=== PATIENT | female | born 1950 | race Caucasian/White ===

== ENCOUNTER 2017-09-12 07:00 | Emergency (ER) | payer OTHER ==
[2017-09-12] MEDS ORDERED: KETOROLAC 30 MG/ML INJ ONE (07:32)
[2017-09-12] MEDS ORDERED: CYCLOBENZAPRINE 10 MG TAB ONE (07:32)
--- NOTE | 2017-09-12 09:00 | EDPHYS ---
Physician Documentation [facility] Name: Mary Bernardo Age: 66 yrs Sex: Female : 1950 Arrival Date: 09/12/2017 Time: 07:02 Bed 20 Private MD: Earl Padron ED Physician Ernesto Rosado HPI: 09/12 11:25 This 66 yrs old Female presents to ER via Ambulatory with complaints of Back kdr Pain. 11:25 The patient presents with pain that is acute, and decreased range of motion. The kdr symptoms are located in the low back, right mid back. Onset: The symptoms/episode began/occurred suddenly, yesterday. The pain does not radiate. Associated signs and symptoms: Pertinent positives: nausea, Pertinent negatives: abdominal pain, chest pain, constipation, dysuria, fever, headache, hematuria, incontinence, numbness, tingling, urinary retention, vomiting, weakness. The problem was sustained when bending over, when lifting without known cause, from unknown cause. Severity of symptoms: At their worst the symptoms were moderate, in the emergency department the symptoms are unchanged. The patient has not experienced similar symptoms in the past. The patient has not recently seen a physician. Historical: - Allergies: 07:25 Cipro PO; ae1 07:25 PENICILLINS; ae1 - Home Meds: 07:25 Lipitor Oral [Active]; Metoprolol Tartrate Oral [Active]; aspirin 81 mg Oral chew 1 tab ae1 once daily [Active]; Lisinopril Oral [Active]; - PMHx: 07:25 Hyperlipidemia; Hypertension; ae1 - PSHx: 07:25 Hysterectomy; double bypass; femoral artery bypass; ae1 - Immunization history:: Adult Immunizations up to date. - Social history:: Smoking status: Patient/guardian denies using tobacco, but has a distant history of tobacco abuse. - Ebola Screening: : Patient negative for fever greater than or equal to 101.5 degrees Fahrenheit, and additional compatible Ebola Virus Disease symptoms Patient denies exposure to infectious person Patient denies travel to an Ebola-affected area in the 21 days before illness onset. ROS: 11:25 Constitutional: Negative for fever, chills, and weight loss, Eyes: Negative for injury, kdr pain, redness, and discharge, ENT: Negative for injury, pain, and discharge, Neck: Negative for injury, pain, and swelling, Cardiovascular: Negative for chest pain, palpitations, and edema, Respiratory: Negative for shortness of breath, cough, wheezing, and pleuritic chest pain, Abdomen/GI: Negative for abdominal pain, nausea, vomiting, diarrhea, and constipation, : Negative for injury, bleeding, discharge, and swelling, MS/Extremity: Negative for injury and deformity, Skin: Negative for injury, rash, and discoloration, Neuro: Negative for headache, weakness, numbness, tingling, and seizure activity. Psych: Negative for depression, anxiety, suicide ideation, homicidal ideation, and hallucinations, Allergy/Immunology: Negative for hives, rash, and allergies, Endocrine: Negative for neck swelling, polydipsia, polyuria, polyphagia, and marked weight changes, Hematologic/Lymphatic: Negative for swollen nodes, abnormal bleeding, and unusual bruising. 11:25 Back: Positive for decreased range of motion, pain with movement, flank pain, on the right, Negative for injury or acute deformity, pain at rest, radiated pain. Exam: 11:25 Constitutional: This is a well developed, well nourished patient who is awake, alert, kdr and in no acute distress. Head/Face: Normocephalic, atraumatic. Eyes: Pupils equal round and reactive to light, extra-ocular motions intact. Lids and lashes normal. Conjunctiva and sclera are non-icteric and not injected. Cornea within normal limits. Periorbital areas with no swelling, redness, or edema. Neck: Trachea midline, no thyromegaly or masses palpated, and no cervical lymphadenopathy. Supple, full range of motion without nuchal rigidity, or vertebral point tenderness. No Meningismus. Chest/axilla: Normal chest wall appearance and motion. Nontender with no deformity. No lesions are appreciated. Cardiovascular: Regular rate and rhythm with a normal S1 and S2. No gallops, murmurs, or rubs. Normal PMI, no JVD. No pulse deficits. Respiratory: Lungs have equal breath sounds bilaterally, clear to auscultation and percussion. No rales, rhonchi or wheezes noted. No increased work of breathing, no retractions or nasal flaring. Abdomen/GI: Soft, non-tender, with normal bowel sounds. No distension or tympany. No guarding or rebound. No evidence of tenderness throughout. Skin: Warm, dry with normal turgor. Normal color with no rashes, no lesions, and no evidence of cellulitis. MS/ Extremity: Pulses equal, no cyanosis. Neurovascular intact. Full, normal range of motion. Neuro: Awake and alert, GCS 15, oriented to person, place, time, and situation. Cranial nerves II-XII grossly intact. Motor strength 5/5 in all extremities. Sensory grossly intact. Cerebellar exam normal. Normal gait. Psych: Awake, alert, with orientation to person, place and time. Behavior, mood, and affect are within normal limits. 11:25 Back: pain, that is moderate, of the right mid back, ROM is painful, normal spinal alignment noted, CVA tenderness, is noted on the right, vertebral tenderness, is not appreciated, muscle spasm, is appreciated in the right mid back, The patient has pain only when she moves. She has no pain when at rest in bed. Vital Signs: 07:25 BP 152 / 82; Pulse 52; Resp 19; Temp 97.6(O); Pulse Ox 96% on R/A; Weight 99.79 kg (R); ae1 Pain 8/10; 08:30 BP 133 / 54; Pulse 50; Resp 16; Pulse Ox 96% on R/A; ae1 MDM: 08:59 Patient medically screened. kdr 11:25 Data reviewed: vital signs, nurses notes. Counseling: I had a detailed discussion with kdr the patient and/or guardian regarding: the historical points, exam findings, and any diagnostic results supporting the discharge/admit diagnosis, the need for outpatient follow up. 09/12 07:22 Order name: Urine Dipstick-Ancillary (obtain specimen); Complete Time: 07:29 kdr Administered Medications: 07:30 Drug: TORadol 30 mg Route: IM; Site: left gluteus; ae1 08:17 Follow up: Response: Pain is decreased ae1 07:30 Drug: Flexeril 10 mg Route: PO; ae1 08:17 Follow up: Response: Pain is decreased ae1 Disposition: 09/12/17 08:59 Discharged to Home. Impression: Muscle spasm of back, Muscle spasm, Low back pain. - Condition is Stable. - Discharge Instructions: Musculoskeletal Pain, Back Pain, Adult, [id number], Muscle Cramps and Spasms, [id number]. - Prescriptions for Ibuprofen 800 mg Oral Tablet - take 1 tablet by ORAL route every 8 hours As needed take with food; 12 tablet. Cyclobenzaprine 10 mg Oral Tablet - take 1 tablet by ORAL route every 8 hours As needed; 15 tablet. - Medication Reconciliation Form, Thank You Letter form. - Follow up: Earl Padron DO; When: 2 - 3 days; Reason: If symptoms return, Further diagnostic work-up, Recheck today's complaints, Continuance of care, Re-evaluation by your physician. - Problem is new. - Symptoms have improved. Signatures: Ernesto Rosado MD MD kdr Choco Cote RN RN ae1 Corrections: (The following items were deleted from the chart) 09:28 08:59 09/12/2017 08:59 Discharged to Home. Impression: Muscle spasm of back; Muscle ae1 spasm; Low back pain. Condition is Stable. Forms are Medication Reconciliation Form, Thank You Letter, Antibiotic Education, Prescription Opioid Use. Follow up: Earl Padron; When: 2 - 3 days; Reason: If symptoms return, Further diagnostic work-up, Recheck today's complaints, Continuance of care, Re-evaluation by your physician. Problem is new. Symptoms have improved. kdr
--- NOTE | 2017-09-12 09:00 | ER ---
Nurse's Notes [facility] Name: Mary Bernardo Age: 66 yrs Sex: Female : 1950 Arrival Date: 09/12/2017 Time: 07:02 Bed 20 Private MD: Earl Padron Diagnosis: Muscle spasm of back;Muscle spasm;Low back pain Presentation: 09/12 07:18 Presenting complaint: Patient states: patient reports pain to the right flank that ae1 started the previous day after shopping at the grocery store. patient denies injury, rate pain 8/10. Transition of care: patient was not received from another setting of care. Onset of symptoms was September 11, 2017. Risk Assessment: Do you want to hurt yourself or someone else? Patient reports no desire to harm self or others. Initial Sepsis Screen: Does the patient meet any 2 criteria? No. Patient's initial sepsis screen is negative. Does the patient have a suspected source of infection? No. Patient's initial sepsis screen is negative. 07:18 Method Of Arrival: Ambulatory ae1 07:18 Acuity: DIEUDONNE 4 ae1 07:53 Care prior to arrival: None. ae1 Historical: - Allergies: 07:25 Cipro PO; ae1 07:25 PENICILLINS; ae1 - Home Meds: 07:25 Lipitor Oral [Active]; Metoprolol Tartrate Oral [Active]; aspirin 81 mg Oral chew 1 tab ae1 once daily [Active]; Lisinopril Oral [Active]; - PMHx: 07:25 Hyperlipidemia; Hypertension; ae1 - PSHx: 07:25 Hysterectomy; double bypass; femoral artery bypass; ae1 - Immunization history:: Adult Immunizations up to date. - Social history:: Smoking status: Patient/guardian denies using tobacco, but has a distant history of tobacco abuse. - Ebola Screening: : Patient negative for fever greater than or equal to 101.5 degrees Fahrenheit, and additional compatible Ebola Virus Disease symptoms Patient denies exposure to infectious person Patient denies travel to an Ebola-affected area in the 21 days before illness onset. Screenin:52 Abuse screen: Denies threats or abuse. Denies injuries from another. Nutritional ae1 screening: No deficits noted. Tuberculosis screening: No symptoms or risk factors identified. Fall Risk None identified. Assessment: 07:47 General: Appears uncomfortable, obese, Behavior is calm, cooperative. Pain: Complains ae1 of pain in right mid back and right low back Pain currently is 8 out of 10 on a pain scale. Aggravated by increased activity, Noted to be resistant to movement. Neuro: Level of Consciousness is awake, alert, obeys commands, Oriented to person, place, time, situation. Cardiovascular: Heart tones S1 S2 present Patient's skin is warm and dry. Respiratory: Airway is patent Respiratory effort is even, unlabored, Respiratory pattern is regular, symmetrical, Breath sounds are clear bilaterally. GI: Abdomen is round obese, Bowel sounds present X 4 quads. GI: Reports nausea. : No signs and/or symptoms were reported regarding the genitourinary system. EENT: No signs and/or symptoms were reported regarding the EENT system. wears glasses. Derm: Skin is normal. Musculoskeletal: no visible deformity or swelling. patient denies injury. 08:16 Reassessment: Patient appears in no apparent distress at this time. No changes from ae1 previously documented assessment. Patient states feeling better. Vital Signs: 07:25 BP 152 / 82; Pulse 52; Resp 19; Temp 97.6(O); Pulse Ox 96% on R/A; Weight 99.79 kg (R); ae1 Pain 8/10; 08:30 BP 133 / 54; Pulse 50; Resp 16; Pulse Ox 96% on R/A; ae1 ED Course: 07:02 Patient arrived in ED. am2 07:02 Earl Padron DO is Private Physician. am2 07:14 Ernesto Rosado MD is Attending Physician. kdr 07:18 Choco Cote RN is Primary Nurse. ae1 07:21 Triage completed. ae1 07:52 Arm band placed on right wrist. ae1 07:53 Placed in gown. Bed in low position. Call light in reach. Side rails up X 1. Adult w/ ae1 patient. Pulse ox on. NIBP on. Warm blanket given. 08:57 Earl Padron DO is Referral Physician. kdr 09:26 No provider procedures requiring assistance completed. Patient did not have IV access ae1 during this emergency room visit. Administered Medications: 07:30 Drug: TORadol 30 mg Route: IM; Site: left gluteus; ae1 08:17 Follow up: Response: Pain is decreased ae1 07:30 Drug: Flexeril 10 mg Route: PO; ae1 08:17 Follow up: Response: Pain is decreased ae1 Outcome: 08:59 Discharge ordered by . kdr 09:26 Discharged to home ambulatory. ae1 09:26 Condition: improved 09:26 Discharge instructions given to patient, Instructed on discharge instructions, follow up and referral plans. Demonstrated understanding of instructions, Prescriptions given X 2. 09:28 Patient left the ED. ae1 Signatures: Ernesto Rosado MD MD [facility] Choco Cote RN RN ae1 Lisa Solomon am2
== END 2017-09-12 09:28 | disposition home or self-care (01) ==
LOC: ER 07:00
DX: M62.830 Muscle spasm of back (principal); E78.5 Hyperlipidemia, unspecified; I10 Essential (primary) hypertension; Z88.1 Allergy status to other antibiotic agents; Z88.0 Allergy status to penicillin
CPT/HCPCS: 96372; 99283

== ENCOUNTER 2021-01-04 22:43 | Emergency (ER) | payer OTHER ==
[2021-01-04 23:31] LABS: Urine Blood 2+ (Negative); Urine Glucose Negative (Negative); Urine Protein Negative (Negative); Urine Specific Gravity >=1.030 (1.005-1.030); Urine pH 5.5 (5.0-7.0)
[2021-01-04] MEDS ORDERED: NA CHLORIDE 0.9% 500 ML ONE (23:58)
[2021-01-04] MEDS ORDERED: ONDANSETRON 4 MG/2 ML VIAL ONE (23:58)
[2021-01-04] MEDS ORDERED: NA CHLORIDE 0.9% 1,000 ML ONE (23:58)
[2021-01-04] MEDS ORDERED: MECLIZINE HCL 12.5 MG TAB ONE (23:59)
[2021-01-05 00:27] LABS: Absolute Lymphocytes (CBC) 2.6 K/uL (0.7-4.9); Basophils % 0.4 % (0-1.3); Hematocrit 42.9 % (36.0-45.0); Lymphocytes % 24.3 % (15.3-44.8); MPV 8.7 fL (7.6-11.3); RBC Red Blood Cell Count 4.62 M/uL (3.86-4.86)
[2021-01-05 00:39] LABS: ALT/SGPT 29 U/L (12-78); AST/SGOT 19 U/L (15-37); Albumin 3.9 g/dL (3.4-5.0); Alkaline Phosphatase 99 U/L (45-117); BUN Blood Urea Nitrogen 24 mg/dL (7-18); Bicarbonate 24 mmol/L (21-32); Bilirubin Direct 0.2 mg/dL (0-0.2); Bilirubin Total 0.8 mg/dL (0.2-1.0); Glucose Level 125 mg/dL (74-106); NT PRO-BNP 158 pg/mL (<125); Protein, Total 8.4 g/dL (6.4-8.2); Sodium Level 140 mmol/L (136-145); Troponin (Emerg Dept Use Only) < 0.02 ng/mL (0.0-0.045)
--- NOTE | 2021-01-05 00:52 | ER ---
Nurse's Notes [facility] Name: Mary Bernardo Age: 70 yrs Sex: Female : 1950 Arrival Date: 01/04/2021 Time: 22:46 Bed 9 Private MD: Diagnosis: Dizziness and giddiness;Benign paroxysmal vertigo, bilateral Presentation: 01/04 23:00 Chief complaint: Patient states: Dizziness. Coronavirus screen: Vaccine status: Patient df1 reports receiving the 2nd dose of the covid vaccine. Date June 2020. Ebola Screen: Patient negative for fever greater than or equal to 101.5 degrees Fahrenheit, and additional compatible Ebola Virus Disease symptoms. Initial Sepsis Screen: Does the patient meet any 2 criteria? No. Patient's initial sepsis screen is negative. Risk Assessment: Do you want to hurt yourself or someone else? Patient reports no desire to harm self or others. Onset of symptoms was January 03, 2021. 23:00 Method Of Arrival: Wheelchair df1 23:00 Acuity: DIEUDONNE 3 df1 23:04 Note Pt stated dizziness with movement and nausea starting tonight. H/A /10. df1 01/05 02:51 Initial Sepsis Screen: Does the patient have a suspected source of infection? No. sj1 Patient's initial sepsis screen is negative. Triage Assessment: 00:20 Pain: Pain currently is 4 out of 10 on a pain scale. Pain began gradually, Also sj1 complains of no other associated symptoms. 02:50 Headache History: Denies prior headaches. General: Appears in no apparent distress. [facility] Historical: - Allergies: 01/04 23:02 Cipro PO; df1 23:02 PENICILLINS; df1 - Home Meds: 23:02 aspirin 81 mg Oral chew 1 tab once daily [Active]; df1 23:11 Lipitor 20 mg oral tab 1 tab once daily [Active]; lisinopril 20 mg oral tab 1 tab once df1 daily [Active]; metoprolol tartrate 50 mg oral tab 1 tab once daily [Active]; - PMHx: 23:02 Hyperlipidemia; Hypertension; Myocardial infarction; df1 - PSHx: 23:02 Coronary artery bypass graft; Total abdominal hysterectomy; df1 - Immunization history:: Adult Immunizations up to date, Client reports receiving the 2nd dose of the Covid vaccine. - Social history:: Smoking status: Patient/guardian denies using. - Family history:: not pertinent. Screenin/23 00:03 Abuse screen: Denies threats or abuse. Nutritional screening: No deficits noted. sj1 Tuberculosis screening: No symptoms or risk factors identified. Fall Risk IV access (20 points). Gait- Normal/Bed Rest/Wheelchair (0 pts). Assessment: 00:03 General: Appears in no apparent distress. Behavior is calm, cooperative, Reports sj1 headache, left ear pain now resolved, + dizziness. Pain: Complains of pain in headache. Neuro: Level of Consciousness is awake, alert, Oriented to person, place, time, situation, Gait is steady, Speech is normal, Facial symmetry appears normal. Cardiovascular: Reports nausea. Respiratory: No deficits noted. GI: No deficits noted. : No deficits noted. EENT: No signs and/or symptoms were reported regarding the EENT system. Derm: No deficits noted. Musculoskeletal: No deficits noted. Vital Signs: 01/04 23:00 BP 164 / 83; Pulse 60; Resp 18; Temp 98.8; Pulse Ox 98% ; Weight 108.86 kg; Height 5 df1 ft. 3 in. (160.02 cm); Pain 0/10; 01/05 00:48 BP 143 / 65 LA Sitting (auto/lg); Pulse 57; Resp 18; Pulse Ox 94% on R/A; Pain 0/10; sj1 02:52 BP 152 / 68; Pulse 54; Resp 19 S; Temp 98.8; Pulse Ox 96% on R/A; Pain 1/10; sj1 01/04 23:00 Body Mass Index 42.51 (108.86 kg, 160.02 cm) df1 Vitals: 00:03 Cardiac Rhythm Assessment Regular Sinus marilee. sj1 Brainard Coma Score: 00:03 Eye Response: spontaneous(4). Verbal Response: oriented(5). Motor Response: obeys sj1 commands(6). Total: 15. ED Course: 01/04 22:46 Patient arrived in ED. bp1 23:02 Triage completed. df1 23:13 Ken Rajput MD is Attending Physician. beata 23:23 XRAY Chest (1 view) In Process Unspecified. EDMS 23:39 CT Head Brain wo Cont In Process Unspecified. EDMS 23:49 Urine Culture Sent. sj1 23:49 Basic Metabolic Panel Sent. sj1 23:49 CBC with Automated Diff Sent. sj1 23:49 Liver (Hepatic) Function Sent. [facility] 01/05 00:00 Patient placed on digital media sales consultant. sj1 00:03 No apparent distress. sj1 00:03 Inserted saline lock: 20 gauge in right antecubital area, using aseptic technique. sj1 00:03 Patient has correct armband on for positive identification. Bed in low position. Call 1 light in reach. Side rails up X 1. 00:20 No provider procedures requiring assistance completed. sj1 00:23 LFT's Sent. sj1 : CBC with Diff Sent. sj1 00: Basic Metabolic Panel Sent. sj1 00:52 Handy Sifuentes MD is Referral Physician. [facility] 02:51 IV discontinued, intact, bleeding controlled, No redness/swelling at site. sj1 Administered Medications: 01/04 23:48 Drug: NS 0.9% 500 ml Route: IV; Rate: bolus; Site: right antecubital; [facility] 01/05 00:48 Follow up: IV Status: Completed infusion; IV Intake: 500ml [facility] 01/04 23:48 Drug: NS 0.9% 1000 ml Route: IV; Rate: 125 ml/hr; Site: right antecubital; [facility] 01/05 02:54 Follow up: IV Status: Order to discontinue infusion [facility] 01/04 23:49 Drug: Zofran (Ondansetron) 4 mg Route: IVP; Site: right antecubital; [facility] 01/05 00:22 Follow up: Response: No adverse reaction [facility] 01/04 23:49 Drug: Meclizine 50 mg Route: PO; 1 01/05 00:49 Follow up: Response: Marked relief of symptoms sj1 Intake: 00:48 IV: 500ml; Total: 500ml. [facility] Outcome: 00:52 Discharge ordered by . [facility] 02:49 Discharged to home [facility] 02:49 Condition: stable 02:49 Discharge instructions given to patient, Instructed on discharge instructions, follow up and referral plans. medication usage, Demonstrated understanding of instructions, follow-up care, medications. 02:53 Patient left the ED. [facility] Signatures: Dispatcher [employer] EDMS ReguloKen MD MD cha Paniauga, Brittany bp1 Furlich, Dawn df1 Courtney Begum, RN RN sj1 Corrections: (The following items were deleted from the chart) 00:19 01/04 23:49 CORONAVIRUS+ drawn and sent. sj1 EDMS
--- NOTE | 2021-01-05 00:52 | EDPHYS ---
Physician Documentation [facility] Name: Mary Bernardo Age: 70 yrs Sex: Female : 1950 Arrival Date: 01/04/2021 Time: 22:46 Bed 9 Private MD: ED Physician Ken Rajput HPI: 01/05 00:17 This 70 yrs old Female presents to ER via Wheelchair with complaints of beata Dizziness, Headache. 00:17 The patient presents with dizziness, generalized weakness. Onset: The symptoms/episode beata began/occurred last night. Context: occurred. Modifying factors: The symptoms are alleviated by closing eyes, holding head still, the symptoms are aggravated by movement of head, standing up, changing position. Associated signs and symptoms: Pertinent positives: palpitations. Severity of symptoms: At their worst the symptoms were mild in the emergency department the symptoms are unchanged. Patient's baseline: Neuro: alert and fully oriented. The patient has experienced similar episodes in the past, a few times. Historical: - Allergies: 01/04 23:02 Cipro PO; df1 23:02 PENICILLINS; df1 - Home Meds: 23:02 aspirin 81 mg Oral chew 1 tab once daily [Active]; df1 23:11 Lipitor 20 mg oral tab 1 tab once daily [Active]; lisinopril 20 mg oral tab 1 tab once df1 daily [Active]; metoprolol tartrate 50 mg oral tab 1 tab once daily [Active]; - PMHx: 23:02 Hyperlipidemia; Hypertension; Myocardial infarction; df1 - PSHx: 23:02 Coronary artery bypass graft; Total abdominal hysterectomy; df1 - Immunization history:: Adult Immunizations up to date, Client reports receiving the 2nd dose of the Covid vaccine. - Social history:: Smoking status: Patient/guardian denies using. - Family history:: not pertinent. ROS: 01/05 00:17 Constitutional: Negative for fever, chills, and weight loss, Eyes: Negative for injury, beata pain, redness, and discharge, ENT: Negative for injury, pain, and discharge, Neck: Negative for injury, pain, and swelling, Cardiovascular: Negative for chest pain, palpitations, and edema, Respiratory: Negative for shortness of breath, cough, wheezing, and pleuritic chest pain, Abdomen/GI: Negative for abdominal pain, nausea, vomiting, diarrhea, and constipation, Back: Negative for injury and pain, : Negative for injury, bleeding, discharge, and swelling, MS/Extremity: Negative for injury and deformity, Skin: Negative for injury, rash, and discoloration, Psych: Negative for depression, anxiety, suicide ideation, homicidal ideation, and hallucinations, Allergy/Immunology: Negative for hives, rash, and allergies, Endocrine: Negative for neck swelling, polydipsia, polyuria, polyphagia, and marked weight changes, Hematologic/Lymphatic: Negative for swollen nodes, abnormal bleeding, and unusual bruising. Neuro: Positive for dizziness. Exam: 00:17 Constitutional: This is a well developed, well nourished patient who is awake, alert, beata and in no acute distress. Head/Face: Normocephalic, atraumatic. Eyes: Pupils equal round and reactive to light, extra-ocular motions intact. Lids and lashes normal. Conjunctiva and sclera are non-icteric and not injected. Cornea within normal limits. Periorbital areas with no swelling, redness, or edema. ENT: Nares patent. No nasal discharge, no septal abnormalities noted. Tympanic membranes are normal and external auditory canals are clear. Oropharynx with no redness, swelling, or masses, exudates, or evidence of obstruction, uvula midline. Mucous membranes moist. Neck: Trachea midline, no thyromegaly or masses palpated, and no cervical lymphadenopathy. Supple, full range of motion without nuchal rigidity, or vertebral point tenderness. No Meningismus. Chest/axilla: Normal chest wall appearance and motion. Nontender with no deformity. No lesions are appreciated. Cardiovascular: Regular rate and rhythm with a normal S1 and S2. No gallops, murmurs, or rubs. Normal PMI, no JVD. No pulse deficits. Respiratory: Lungs have equal breath sounds bilaterally, clear to auscultation and percussion. No rales, rhonchi or wheezes noted. No increased work of breathing, no retractions or nasal flaring. Abdomen/GI: Soft, non-tender, with normal bowel sounds. No distension or tympany. No guarding or rebound. No evidence of tenderness throughout. Back: No spinal tenderness. No costovertebral tenderness. Full range of motion. Female : Normal external genitalia. Skin: Warm, dry with normal turgor. Normal color with no rashes, no lesions, and no evidence of cellulitis. MS/ Extremity: Pulses equal, no cyanosis. Neurovascular intact. Full, normal range of motion. Neuro: Awake and alert, GCS 15, oriented to person, place, time, and situation. Cranial nerves II-XII grossly intact. Motor strength 5/5 in all extremities. Sensory grossly intact. Cerebellar exam normal. Normal gait. Psych: Awake, alert, with orientation to person, place and time. Behavior, mood, and affect are within normal limits. 00:23 ECG was reviewed by the Attending Physician. [facility] Vital Signs: 01/04 23:00 BP 164 / 83; Pulse 60; Resp 18; Temp 98.8; Pulse Ox 98% ; Weight 108.86 kg; Height 5 df1 ft. 3 in. (160.02 cm); Pain 0/10; 01/05 00:48 BP 143 / 65 LA Sitting (auto/lg); Pulse 57; Resp 18; Pulse Ox 94% on R/A; Pain 0/10; sj1 02:52 BP 152 / 68; Pulse 54; Resp 19 S; Temp 98.8; Pulse Ox 96% on R/A; Pain 1/10; sj1 01/04 23:00 Body Mass Index 42.51 (108.86 kg, 160.02 cm) df1 Dulce Maria Coma Score: 00:03 Eye Response: spontaneous(4). Verbal Response: oriented(5). Motor Response: obeys sj1 commands(6). Total: 15. MDM: 01/04 23:13 Patient medically screened. [facility] 01/05 00:20 Data reviewed: vital signs, nurses notes, lab test result(s), EKG, radiologic studies, [facility] CT scan, plain films. Data interpreted: clinic specialist: rate is 60 beats/min, rhythm is normal sinus rhythm, Pulse oximetry: on room air is 98 %. Test interpretation: by ED physician or midlevel provider: ECG, plain radiologic studies. Counseling: I had a detailed discussion with the patient and/or guardian regarding: the historical points, exam findings, and any diagnostic results supporting the discharge/admit diagnosis, lab results, radiology results, the need for outpatient follow up. 01/04 23:15 Order name: Basic Metabolic Panel [facility] 01/04 23:15 Order name: CBC with Diff [facility] 01/04 23:15 Order name: LFT's [facility] 01/04 23:15 Order name: Magnesium; Complete Time: 00:51 [facility] 01/04 23:15 Order name: NT PRO-BNP; Complete Time: 00:51 [facility] 01/04 23:15 Order name: PT-INR; Complete Time: 00:51 [facility] 01/04 23:15 Order name: Troponin (emerg Dept Use Only); Complete Time: 00:51 [facility] 01/04 23:15 Order name: Basic Metabolic Panel; Complete Time: 00:51 [facility] 01/04 23:15 Order name: CBC with Automated Diff; Complete Time: 00:51 [facility] 01/04 23:15 Order name: Liver (Hepatic) Function; Complete Time: 00:51 [facility] 01/04 23:17 Order name: Urine Culture [facility] 01/04 23:31 Order name: Urine Dipstick-Ancillary; Complete Time: 00:16 [facility] 01/05 02:12 Order name: SARS-COV-2 RT PCR [facility] 01/04 23:15 Order name: XRAY Chest (1 view) [facility] 01/04 23:15 Order name: EKG; Complete Time: 23:15 [facility] 01/04 23:15 Order name: Cardiac monitoring; Complete Time: 00:23 [facility] 01/04 23:15 Order name: EKG - Nurse/Tech; Complete Time: 00:23 [facility] 01/04 23:15 Order name: IV Saline Lock; Complete Time: 00:23 [facility] 01/04 23:15 Order name: Labs collected and sent; Complete Time: 00:23 [facility] 01/04 23:15 Order name: O2 Per Protocol; Complete Time: 00:23 [facility] 01/04 23:15 Order name: O2 Sat Monitoring; Complete Time: 00:22 [facility] 01/04 23:15 Order name: Urine Dipstick-Ancillary (obtain specimen); Complete Time: 23:49 [facility] 01/04 23:15 Order name: CT Head Brain wo Cont [facility] EC:23 Rate is 53 beats/min. Rhythm is regular. QRS [place] is Normal. DE interval is normal. QRS beata interval is normal. QT interval is normal. No Q waves. T waves are Inverted in leads aVL, V1, V2. Interpreted by me. Reviewed by me. Administered Medications: 01/04 23:48 Drug: NS 0.9% 500 ml Route: IV; Rate: bolus; Site: right antecubital; [facility] 01/05 00:48 Follow up: IV Status: Completed infusion; IV Intake: 500ml [facility] 01/04 23:48 Drug: NS 0.9% 1000 ml Route: IV; Rate: 125 ml/hr; Site: right antecubital; [facility] 01/05 02:54 Follow up: IV Status: Order to discontinue infusion [facility] 01/04 23:49 Drug: Zofran (Ondansetron) 4 mg Route: IVP; Site: right antecubital; [facility] 01/05 00:22 Follow up: Response: No adverse reaction [facility] 01/04 23:49 Drug: Meclizine 50 mg Route: PO; [facility] 01/05 00:49 Follow up: Response: Marked relief of symptoms 1 Disposition Summary: 01/05/21 00:52 Discharge Ordered Location: Home beata Problem: new beata Symptoms: have improved beata Condition: Stable beata Diagnosis - Dizziness and giddiness beata - Benign paroxysmal vertigo, bilateral beata Followup: beata - With: Private Physician - When: 2 - 3 days - Reason: Recheck today's complaints, Continuance of care, Re-evaluation by your physician Followup: beata - With: Handy Sifuentes MD - When: 2 - 3 days - Reason: Recheck today's complaints, Continuance of care, Re-evaluation by your physician Discharge Instructions: - Discharge Summary Sheet beata - Benign Positional Vertigo beata - Dizziness beata - Motion Sickness beata - Near-Syncope beata - Near-Syncope, [id number] beata - Aspirin and Your Heart beata - Dizziness, [id number] beata Forms: - Medication Reconciliation Form beata - Thank You Letter beata - Antibiotic Education beata - Prescription Opioid Use beata Prescriptions: - Meclizine 25 mg Oral Tablet - take 1 tablet by ORAL route every 8 hours As needed; 30 tablet; Refills: 0, beata Product Selection Permitted - Zofran 4 mg Oral Tablet - take 1 tablet by ORAL route every 12 hours As needed; 20 tablet; Refills: 0, beata Product Selection Permitted Signatures: Dispatcher [employer] Ken Sharp MD MD cha Furlich, Dawn df1 Courtney Begum, RN RN sj1 Corrections: (The following items were deleted from the chart) 00:19 01/04 23:15 CORONAVIRUS+MR.LAB.BRZ ordered. EDMS EDMS
[2021-01-05 03:42] VITALS: TEMP 98.8
[2021-01-05 03:44] VITALS: BP 152/68; O2SAT 96
--- NOTE | 2021-01-05 07:25 | RAD REPORT ---
EXAM DESCRIPTION: Sarbjit Single View01/04/2021 11:24 pm CLINICAL HISTORY: Cough COMPARISON: None FINDINGS: Lung bases are hazy. Upper lobes appear clear The heart is mildly enlarged. Postsurgical changes involve the chest. IMPRESSION: Lung bases are hazy probably secondary to overlying soft tissue. Infiltrates can also hutch[place] ve a similar appearance. If patient's symptoms persist PA and lateral chest series would be recommend ed
--- NOTE | 2021-01-05 11:41 | RAD REPORT ---
EXAM DESCRIPTION: CT - Head Brain Wo Cont - 01/05/2021 6:25 am CLINICAL HISTORY: The patient is 70 years old and is Female; DIZZINESS TECHNIQUE: Axial computed tomography images of the head/brain without intravenous contrast. Sagitt al and coronal reformatted images were created and reviewed. This CT exam was performed using one o r more of the following dose reduction techniques: automated exposure control, adjustment of the mA and/or kV according to patient size, and/or use of iterative reconstruction technique. COMPARISON: No relevant prior studies available. FINDINGS: Brain: Unremarkable. No hemorrhage. No significant white matter disease. No edema. Ventricles: Unremarkable. No ventriculomegaly. Bones/joints: Unremarkable. No acute fracture. Soft tissues: Unremarkable. Sinuses: Left maxillary sinus retention cyst or polyp. Mastoid air cells: Unremarkable as visualized. No mastoid effusion. IMPRESSION: No acute intracranial abnormality. Electronically signed by: Augie Parmar MD 01/04/2021 11:51 PM CDT Due to temporary technical issues with the PACS/Fluency reporting system, reports are being signed by the in house radiologist without review as a courtesy to ensure prompt reporting. The interpreting r adiologist is fully responsible for the content of the report.
== END 2021-01-05 02:53 | disposition home or self-care (01) ==
LOC: ER 22:43
DX: H81.13 Benign paroxysmal vertigo, bilateral (principal); I10 Essential (primary) hypertension; Z95.1 Presence of aortocoronary bypass graft; Z20.822 Contact with and (suspected) exposure to COVID-19; Z79.82 Long term (current) use of aspirin; Z88.0 Allergy status to penicillin; Z88.1 Allergy status to other antibiotic agents
CPT/HCPCS: 96361; 93005 ×2; 87088; 85025; 87086; 80048; 36415; 83735; 85610; 80076; 81003; 84484; 83880; 70450; 71045; 96374; 99284; U0003; J7040; J7030; J2405

== ENCOUNTER → 2021-11-17 | Day surgery (SDC) | payer OTHER ==
[~2021-11-17] MED LIST: ATROPINE SULF 1 MG/10 ML SYR IV ONE; FENTANYL CITR 100 MCG/2 ML ONE; HEPA 1000U/500MLS 1,000 UNIT/500 ML BAG IV ONE; LIDOCAINE 1% MPF 5 ML VIAL ONE; MIDAZOLAM HCL 2 MG/2 ML INJ ONE; NA CHLORIDE 0.9% 0 ML IV ONE; NA CHLORIDE 0.9% 500 ML ONE; NITROGLYCERIN 100 MCG/ML SYR (for cath lab use only) IV ONE; NITROGLYCERIN/D5W 25 MG/250 ML BTL IV ONE
--- NOTE | 2021-11-17 15:29 | RAD REPORT ---
EXAM DESCRIPTION: Sarbjit Grant And Reza (2 Views)11/17/2021 3:11 pm CLINICAL HISTORY: Preop for cardiac catheterization COMPARISON: 2020 FINDINGS: The lungs appear clear of acute infiltrate. The heart is normal size IMPRESSION: No acute abnormalities displayed
[2021-11-17 16:01] LABS: SARS-CoV-2 Antigen Rapid Res Negative (Negative)
[2021-11-17 16:02] LABS: Absolute Lymphocytes (CBC) 3.5 K/uL (0.7-4.9); Hematocrit 44.1 % (36.0-45.0); Lymphocytes % 40.8 % (15.3-44.8); MCV 91.6 fL (80-100); MPV 8.8 fL (7.6-11.3); RBC Red Blood Cell Count 4.81 M/uL (3.86-4.86)
[2021-11-17 16:05] LABS: Protime INR 0.99
[2021-11-17 16:06] LABS: Potassium 4.6 mmol/L (3.5-5.1)
--- NOTE | 2021-11-20 08:39 | OP ---
Surgeon: Solo Ochoa MD Legal Coordinator: Ms. Tonia Mccullough. Admitted to my service this morning as an outpatient on 11/20/2021. She was admitted to the pathology lab technician as an outpatient. Procedures: Left heart catheterization, selective coronary arteriogram, vein graft injection, PATTON i njection, aortic root angiography. Indication: Chest pain, CAD, status post CABG, was positive stress test. Procedure In Detail: In the pathology lab technician, the patient was prepped and draped in the routine sterile [facility] ion. She was given Versed and fentanyl for sedation. A 6-Maltese sheath introduced in the right comm on femoral artery successfully using the Seldinger technique and 10 cc of Xylocaine. JL4 catheter wa s used to cannulate the left main. The left main was normal. The LAD was completely occluded after the first diagonal. Circumflex was wide open, it was codominant. She had a 100% occlusion of the pr oximal OM1 with YOBANY-3 flow nevertheless via collaterals. A JR4 catheter cannulated the right main, which was completely occluded. RCA graft was completely occluded. The PATTON was widely patent to the LAD. She was codominant. Aortic root angiography was done to rule out presence of any other graft and that was negative. Aortic root angiogram was normal. The SVG to the RCA was completely occluded and was visible on aortic root angiography. There were no complications. Blood Loss: 5 mL. Postoperative Diagnosis: Severe coronary artery disease. Plan: Plan is for medical treatment. We will increase her metoprolol. We will increase her atorvas tatin and may consider low-dose Lasix. May consider low-dose Imdur or Ranexa down the road. We held pressure over the right groin for hemostasis because the access was in the right common arter y bypass graft. She will be at bedrest for 6 hours and she will go home and she will see me in the o ffice in 2 weeks. Anesthesia: Total conscious sedation was 60 minutes. NB/MODL Voice ID: [id number] Report ID: [id number]
[2021-11-20 13:30] VITALS: BP 148/68; O2SAT 98
== END | disposition home or self-care (01) ==
LOC: CCL 13:00
DX: I25.118 Atherosclerotic heart disease of native coronary artery with other forms of angina pectoris (principal); I25.708 Atherosclerosis of coronary artery bypass graft(s), unspecified, with other forms of angina pectoris; I10 Essential (primary) hypertension; E78.2 Mixed hyperlipidemia; G47.33 Obstructive sleep apnea (adult) (pediatric); E66.01 Morbid (severe) obesity due to excess calories; Z68.42 Body mass index [BMI] 45.0-49.9, adult; F17.210 Nicotine dependence, cigarettes, uncomplicated; Z79.899 Other long term (current) drug therapy; Z88.0 Allergy status to penicillin; Z88.3 Allergy status to other anti-infective agents; Z20.822 Contact with and (suspected) exposure to COVID-19; Z82.49 Family history of ischemic heart disease and other diseases of the circulatory system
CPT/HCPCS: 36415; 71046; 80048; 85025; 85610; 85730; 87811; 93455; C1893; J0583; J1644; J2001; J2250; J3010; J7040; Q9967

== ENCOUNTER 2023-02-12 10:00 | Day surgery (SDC) | payer OTHER ==
[2023-02-08 12:59] LABS: Hematocrit 39.1 % (36.0-45.0); Lymphocytes % 42.9 % (15.3-44.8); MCV 95.7 fL (80-100); MPV 8.5 fL (7.6-11.3); Platelets 180 thou/uL (152-406); RBC Red Blood Cell Count 4.09 M/uL (3.86-4.86)
[2023-02-08 13:05] LABS: Protime INR 1.03
[2023-02-08 13:17] LABS: Potassium 4.1 mEq/L (3.5-5.1)
--- NOTE | 2023-02-08 13:20 | RAD REPORT ---
EXAM DESCRIPTION: Sarbjit Grant And Reza (2 Views)02/08/2023 1:02 pm CLINICAL HISTORY: Preop for cardiac catheterization. Hypertension COMPARISON: 2021 FINDINGS: The lungs appear clear of acute infiltrate. The heart is mildly enlarged. Postsurgical changes involve chest IMPRESSION: No acute abnormalities displayed
--- NOTE | 2023-02-12 08:04 | EKG ---
Test Date: 2023-02-08 Test Time: 12:53:23 Bus Person Dishwasher: MANUEL MEASUREMENT RESULTS: Intervals: Rate: 54 PA: 172 QRSD: 80 QT: 462 QTc: 438 [place]: P: 68 PA: 172 QRS: 65 T: 81 INTERPRETIVE STATEMENTS: Sinus bradycardia Otherwise normal ECG Compared to ECG 01/05/2021 00:01:45 T-wave abnormality no longer present Electronically Signed On 02-12-23 07:54:53 CDT by Bora Shaver
[2023-02-12 10:33] VITALS: TEMP 98
[2023-02-12] MEDS ORDERED: NA CHLORIDE 0.9% 500 ML ONE (10:38)
[2023-02-12] MEDS ORDERED: HEPA 1000U/500MLS 2,000 UNIT/1,000 ML BAG IV ONE (10:44)
[2023-02-12] MEDS ORDERED: LIDOCAINE 1% 20 ML MDV ONE (10:45)
[2023-02-12] MEDS ORDERED: FENTANYL CITR 100 MCG/2 ML ONE (10:45)
[2023-02-12] MEDS ORDERED: VERAPAMIL HCL 10 MG/4 ML VIAL IV ONE (10:45)
[2023-02-12] MEDS ORDERED: MIDAZOLAM HCL 2 MG/2 ML INJ ONE (10:45)
[2023-02-12] MEDS ORDERED: HEPARIN 5000 UNIT/ML 1 ML VIAL ONE (10:45)
[2023-02-12] MEDS ORDERED: ASPIRIN 325 MG TAB ONE (10:46)
[2023-02-12] MEDS ORDERED: TICAGRELOR 90 MG TABLET PO ONE (10:46)
[2023-02-12] MEDS ORDERED: HEPARIN 10,000 UNIT/10 ML VIAL IV ONE (10:46)
[2023-02-12] MEDS ORDERED: CLOPIDOGREL 75 MG TABLET ONE (10:46)
[2023-02-12] MEDS ORDERED: ATROPINE SULF 1 MG/10 ML SYR IV ONE (10:46)
[2023-02-12 15:20] VITALS: O2SAT 96
[2023-02-12 16:17] VITALS: BP 134/63
--- NOTE | 2023-02-12 20:16 | OP ---
Date of Procedure: 02/12/2023 Surgeon: FRANCIA TRAYLOR Procedure Performed: Selective coronary angiogram with bypass graft study. Indication: Unstable angina. Access: Left radial artery 6-[place] closed with TR band. Complications: None. Bleeding: Less than 20 mL. Description Of Procedure: After risks, benefits, alternatives were explained, patient agreed to proc edure and signed informal consent. The patient was brought to the cardiac catheterization laboratory , prepped and draped in the usual sterile fashion and accessed left radial artery using pediatric therese ropuncture kit, placed a 6-[place] Slender sheath and took 6-[place] JR4 catheter into the aortic root, engaged the RCA, took standard views and engaged the PATTON and took standard views and exchanged for 6-[place] JL3.5 catheter, engaged the left main, took standard views and the catheter was pushed over the wire into the LV, measured the LVEDP. Pullback did not record any gradient. Then removed the ca theter and sheath, placed TR band with good hemostasis. Findings: 1.Left main: Large and normal. 2.LAD: Proximal 70% and then before the diagonal takeoff, it is 90% occluded. 3.Left circumflex: Proximal 40%. High OM is normal. Second OM has 99% stenosis getting collaterals from the circumflex itself. The circumflex is large and dominant and supplies the infer ior wall and gives collaterals to the OM2 branch and to the RCA. 4.RCA: Proximal 80%, then becomes 99% and then 100% occluded with collaterals from the left side. 5.Patent PATTON to LAD, but at the touchdown, there is 40% stenosis and extremely tortuous PATTON and ex tremely tortuous arteries. 6.LVEDP normal at 8 mmHg. Conclusion: Severe [place] coronary artery disease with patent PATTON and has 40% at touchdown, but it is extremely tortuous, very difficult to intervene upon and RCA is totally occluded, but with collate rals. Recommend to intensify medical management. If she continues to be symptomatic, we will consid er redo bypass surgery on her. SR/MODL Voice ID: [id number] Report ID: [id number]
== END 2023-02-12 14:40 | disposition home or self-care (01) ==
LOC: CCL 10:00
PROVIDERS: ATTEND Internal Medicine
DX: I25.110 Atherosclerotic heart disease of native coronary artery with unstable angina pectoris (principal); I25.700 Atherosclerosis of coronary artery bypass graft(s), unspecified, with unstable angina pectoris; I25.82 Chronic total occlusion of coronary artery; I77.1 Stricture of artery; I73.9 Peripheral vascular disease, unspecified; I10 Essential (primary) hypertension; E78.5 Hyperlipidemia, unspecified; Z87.891 Personal history of nicotine dependence; Z79.82 Long term (current) use of aspirin; Z88.0 Allergy status to penicillin; Z88.1 Allergy status to other antibiotic agents; Z88.3 Allergy status to other anti-infective agents; Z79.899 Other long term (current) drug therapy; Z82.49 Family history of ischemic heart disease and other diseases of the circulatory system
CPT/HCPCS: 93005; 85025; 80048; 36415; 83721; 85610; 85730; 71046; 93459; 76937; C1893; Q9967; J1644; J2001; J2250; J3010; J7040; J0461

== ENCOUNTER 2023-12-24 09:54 | Emergency (ER) | payer OTHER ==
--- OUTSIDE RECORDS SUMMARY | 2023-12-24 09:57 | XMS REPORT | Continuity of Care Document ---
Author Name Unknown Address [address] [facility] [place]. [address] thconnect Address [address] [facility]. 1 [address] [place] [address] Care Team Providers Care Printing Estimator Name Role Phone Dunia Hidalgo Attending Clinician Unavailable Manish Peters Attending Clinician Unavailable AMALIA WEBSTER Attending Clinician Unavailable LAB90 Attending Clinician Unavailable [email or web address]_S Attending Clinician Unavaila ble [email or web address]_S Admitting Clinician Unavaila ble Payers Payer Name Policy Type Policy Number Effective Date Expirati on Date Source [place] 5 [id number] 2021 00:00:00 [employer] MEDICARE 53 [id number] 2021 00:00:00 [facility] [employer] MEDICARE 53 [id number] 2021 00:00:00 [facility] [employer] MEDICARE PPO C1 [id number] 2019 00:00:00 [facility] Problems Condition Name Condition Details Condition Category Status Onset Date Resolution Date Last Treatment Date Treating Clinician Comments Source History of colon polyps History of colon polyps Disease Active 320 00:00: 00 Sejal block History of aorto-femo ral bypass History of aorto-femo ral bypass Disease Active 2022-04 00:00: 00 Sejal Sharpa mckayla Pulmonary nodules Pulmonary nodules Disease Active 2021-04 00:00: 00 Sejal Sharpa mckayla Well adult exam Well adult exam Disease Active 2021-04 00:00: 00 Sejal Sharpa l Seasonal allergic rhinitis due to pollen Seasonal allergic rhinitis due to pollen Disease Active 2021-04 00:00: 00 Sejal Sharpa mckayla Peripheral vascular disease Peripheral vascular disease Disease Active 2021-04 00:00: 00 Sejal Sharpa mckayla Stage 3a chronic kidney disease Stage 3a chronic kidney disease Disease Active 2021-04 00:00: 00 Sejal Sharpa l Immunodefi ciency due to conditions classified elsewhere (multi HCC) Immunodefi 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 A1c 6.4 Sejal Sharpa mckayla Primary hypertensi on Primary hypertensi on Disease Active 01-01 00:00: 00 Overview: Formattin g of this note might be different from the original. Cardiolog y-Dr. Don block Mixed hyperlipid emia Mixed hyperlipid emia Disease Active 01-01 00:00: 00 Sejal block History of coronary artery bypass graft x 2 History of coronary artery bypass graft x 2 Disease Active 01-01 00:00: 00 Overview: Formattin g of this note might be different from the original. Cardiolog y-Dr. 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 Cardiolog y-Dr. Don block Simple chronic bronchitis (multi HCC) Simple chronic bronchitis (multi HCC) Disease Active 01-01 00:00: 00 Overview: Formattin g of this note might be different from the original. Pulmonary -Dr. Robby block RAÚL (obstructi ve sleep apnea) RAÚL (obstructi ve sleep apnea) Disease Active 01-01 00:00: 00 Overview: Formattin g of this note might be different from the original. Pulmonary Dr. Robby block Class 3 severe obesity due to excess calories with serious comorbidit y and body mass index (BMI) of 45.0 to 49.9 in adult Class 3 severe obesity due to excess calories with serious comorbidit y and body mass index (BMI) of 45.0 to 49.9 in adult Disease Active 01-01 00:00: 00 Sejal block [id number] Panlobular emphysema Problem Active [facility] Urine incontinen ce Urine incontinen ce Problem Active [facility] [id number] Allergic rhinitis, unspecifie d seasonalit y, unspecifie d trigger Problem Active [facility] [id number] Morbid obesity Problem Active [facility] [id number] Low vitamin D level Problem Active [facility] [id number] Environmen kenyatta allergies Problem Active [facility] Allergies, Adverse Reactions, Alerts Allergy Name Allergy Type Status Severity Reaction(s) Onset Date Inactive Date Treating Clinician Comments Source Amoxicil alla Propensi ty to adverse reaction s Active 05-23 00:00: 00 Other reaction( s): Unknown Sejal block Ciprofib rate Propensi ty to adverse reaction s Active 05-23 00:00: 00 Other reaction( s): Unknown Sejal block Ciproflo xacin Hcl Propensi ty to adverse reaction s Active 11-02 00:00: 00 Other reaction( s): Unknown - See commentsP atient don't remember what reaction she gets from taking cipro Sejal Webber - Externa l Penicill ins Propensi ty to adverse reaction s Active Itching 11-02 00:00: 00 Sejal Webber - Externa l ciproflo xacin ciproflo xacin Active Unknown [facility] amoxicil alla amoxicil alla Active Unknown [facility] 0 Drug allergy Active Unknown [facility] Social History Social Habit Start Date Stop Date Quantity Comments Source History of Tobacco Use [facility] Sexual orientation K gonzalo Webber - External History SDOH Alcohol Frequency Sejal rosales - External History SDOH Alcohol Std Drinks Sejal briggs - External History SDOH Alcohol Binge Sejal Webber - External Alcohol intake 2023-07-03 00:00:00 2023-07-03 00:00:00 Ex-drinker (finding) Sejal Webber - External History of Social function 2023-01-13 00:00:00 2023-01-13 00:00:00 Sejal Webber - External Cigarettes smoked current (pack per day) - Reported 2022-01-01 00:00:00 2022-01-01 00:00:00 Sejal Webber - External Cigarette pack-years 2022-01-01 00:00:00 2022-01-01 00:00:00 Sejal Webber - External Tobacco use and exposure 2022-01-01 00:00:00 2022-01-01 00:00:00 Smokeless tobacco non-user Sejal Hernández External Alcohol Comment 2022-01-01 00:00:00 2022-01-01 00:00:00 occasionally Sejal Webber - External Education - What is the highest level of school you have completed or the highest degree you have received? 2022-01-01 00:00:00 2022-01-01 00:00:00 Associate degree: academic program Sejal Hernández External Sex Assigned At 1950 00:00:00 1950 00:00:00 Sejal Webber - External Smoking Status Start Date Stop Date Source Ex-smoker 2022-01-01 00:00:00 2022-01-01 00:00:00 Lupe Vides Medications Ordered Medication Name Filled Medication Name Start Date Stop Date Current Medication? Ordering Clinician Indication Dosage Frequency Signature (SIG) Comments Components Source Aspirin 81 MG oral Chewable Tablet 07-02 08:47: 14 Yes 81mg Take 1 tablet (81 mg total) by mouth. Sejal block Cetirizine 10 MG oral Tablet 07-02 08:47: 14 Yes 10mg Take 1 tablet (10 mg total) by mouth daily. Sejal block Aspirin 81 MG oral Chewable Tablet 2022-04 07:53: 15 Yes 81mg Take 1 tablet (81 mg total) by mouth. Sejal block Cetirizine 10 MG oral Tablet 2022-04 07:53: 15 Yes 10mg Take 1 tablet (10 mg total) by mouth daily. Sejal block Furosemide 40 MG oral Tablet 2022-04 00:00: 00 Yes [id number] 40mg Take 1 tablet (40 mg total) by mouth daily. Sejal block FLUTICASONE PROPIONATE, NASAL, 50 MCG/ACT nasal Suspension 2022-04 00:00: 00 Yes [id number] 50ug QD Use 1 spray (50 mcg total) in each nostril daily as needed for rhinitis. Sejal block Isosorbide Mononitrate CR 30 MG oral TABLET SR 24 HR 2022-04 00:00: 00 Yes 30mg Take 1 tablet (30 mg total) by mouth every morning. Sejal block Atorvastati n Calcium 40 MG oral Tablet 07-05 00:00: 00 Yes [id number] 40mg Take 1 tablet (40 mg total) by mouth nightly Sejal block Cetirizine 10 MG oral Tablet 07-02 08:34: 34 Yes 10mg Take 10 mg by mouth daily Sejal block Aspirin 81 MG oral Chewable Tablet 07-02 08:34: 34 Yes 1{tbl} Take 1 tablet by mouth Sejal block FLUTICASONE PROPIONATE, NASAL, 50 MCG/ACT nasal Suspension 07-02 00:00: 00 Yes [id number] 50ug QD Use 1 spray (50 mcg total) in each nostril daily as needed for rhinitis Sejal block Furosemide 40 MG oral Tablet 07-02 00:00: 00 Yes [id number] 40mg Take 1 tablet (40 mg total) by mouth every 48 hours as needed Sejal block Atorvastati n Calcium 80 MG oral Tablet 07-02 00:00: 00 Yes [id number] 80mg Take 1 tablet (80 mg total) by mouth nightly Sejal block FLUTICASONE PROPIONATE, NASAL, 50 MCG/ACT nasal Suspension 05-07 00:00: 00 07-02 00:00 :00 No [id number] 50ug Use 1 spray (50 mcg total) in each nostril daily Sejal block Cetirizine 10 MG oral Tablet 2021-04 09:35: 10 Yes 10mg Take 10 mg by mouth daily Sejal block Furosemide 40 MG oral Tablet 2021-04 09:34: 01 04-02 00:00 :00 No 40mg Take 40 mg by mouth daily Every other day Sejal block Aspirin 81 MG oral Chewable Tablet 2021-04 09:14: 17 Yes 1{tbl} Take 1 tablet by mouth Sejal Steinbergtaviktoria n Calcium 20 MG oral Tablet 2021-04 09:13: 21 04-02 00:00 :00 No 20mg Take 20 mg by mouth 2 times daily Sejal block ASPIRIN 81 OR 2021-04 09:13: 15 04-02 00:00 :00 No Take by mouth Sejal block FLUTICASONE PROPIONATE, NASAL, 50 MCG/ACT nasal Suspension 2021-04 00:00: 00 Yes [id number] 50ug Use 1 spray (50 mcg total) in each nostril daily Sejal block Furosemide 40 MG oral Tablet 2021-04 00:00: 00 07-02 00:00 :00 No [id number] 40mg Take 1 tablet (40 mg total) by mouth every other day Every other day Sejal block Losartan Potassium 50 MG oral Tablet 2021-04 00:00: 00 07-02 00:00 :00 No [id number] 50mg Take 1 tablet (50 mg total) by mouth daily Sejal block Atorvastati n Calcium 40 MG oral Tablet 2021-04 00:00: 00 Yes 40mg Take 40 mg by mouth daily Sejal block Bevespi Aerosphere 9-4.8 MCG/ACT inhalation Aerosol 12-18 00:00: 00 Yes INHALE 2 PUFFS INTO THE LUNGS TWICE A DAY FOR 30 DAYS Sejal block Lisinopril 20 MG oral Tablet 12-17 00:00: 00 04-02 00:00 :00 No 20mg Take 20 mg by mouth daily Sejal block Ranolazine 500 MG oral Tablet 12 Hour Sustained Release 12-13 00:00: 00 Yes 1{tbl} Take 1 tablet by mouth 2 times daily Sejal block Metoprolol Succinate 50 MG oral TABLET SR 24 HR 11-17 00:00: 00 Yes 50mg Take 1 tablet (50 mg total) by mouth daily. Sejal block Metoprolol Tartrate 50 MG Metoprolol Tartrate 50 MG No 1{table t_with_ food} QD Metoprolol Tartrate 50 MG Aspir-81 Aspir-81 Yes Na Hidalgo 1 tablet [facility] Metoprolol Tartrate Metoprolol Tartrate Yes Na Hidalgo 1 tablet with food [facility] CPAP Machine CPAP Machine Yes Na Hidalgo not defined [facility] Lipitor Lipitor Yes Na Hidalgo 1 tablet [facility] Lisinopril Lisinopril Yes Na Hidalgo 1 tablet [facility] Metoprolol Tartrate 50 MG Metoprolol Tartrate 50 MG No 1{table t_with_ food} QD Metoprolol Tartrate 50 MG Lisinopril 20 MG Lisinopril 20 MG No 1{table t} QD Lisinopril 20 MG Lipitor 20 MG Lipitor 20 MG No 1{table t} QD Lipitor 20 MG Aspir-81 81 MG Aspir-81 81 MG No 1{table t} QD Aspir-81 81 MG Lipitor 20 MG Lipitor 20 MG No 1{table t} QD Lipitor 20 MG Aspir-81 81 MG Aspir-81 81 MG No 1{table t} QD Aspir-81 81 MG Metoprolol Tartrate 50 MG Metoprolol Tartrate 50 MG No 1{table t_with_ food} QD Metoprolol Tartrate 50 MG Lisinopril 20 MG Lisinopril 20 MG No 1{table t} QD Lisinopril 20 MG Immunizations Ordered Immunization Name Filled Immunization Name Date Status Comments Source Moderna COVID-19 Vaccine (Low Dose Booster) Moderna COVID-19 Vaccine (Low Dose Booster) 2021-06-14 14:44:00 Completed [facility] Moderna COVID-19 Vaccine (Low Dose Booster) Moderna COVID-19 Vaccine (Low Dose Booster) 2021-06-14 14:44:00 [facility] Moderna COVID-19 Vaccine (Low Dose Booster) 2021-06-14 14:44:00 Completed [facility] Moderna COVID-19 Vaccine (Low Dose Booster) Moderna COVID-19 Vaccine (Low Dose Booster) 2021-06-14 14:44:00 Completed [facility] Covid-19 Vaccine Moderna (Spikevax), Mrna-lnp, Mathew Protein, Pf 2021-06-14 00:00:00 Completed Sejal Hernández External Covid-19 Vaccine Moderna (Spikevax), Mrna-lnp, Mathew Protein, Pf 2021-06-14 00:00:00 Completed Sejal Hernández External Covid-19 Vaccine Moderna (Spikevax), Mrna-lnp, Mathew Protein, Pf Unknown Completed Sejal Seybold - External Covid-19 Vaccine Moderna (Spikevax), Mrna-lnp, Mathew Protein, Pf Unknown Completed Sejal Seybold - External Vital Signs Vital Name Observation Time Observation Value Ed guzman Systolic blood pressure 2023-07-03 13:45:00 122 mm[Hg] Sejal Seybo ld - External Diastolic blood pressure 2023-07-03 13:45:00 74 mm[Hg] Sejal Hamptonybo ld - External Body temperature 2023-07-03 13:45:00 36.39 Shyla Sejal Seybold - External Respiratory rate 2023-07-03 13:45:00 15 /min Sejal Seybold - External Body height 2023-07-03 13:45:00 160 cm Valerie ey Seybold - External Body weight 2023-07-03 13:45:00 121.564 kg Valerei ey Seybold - External BMI 2023-07-03 13:45:00 47.47 kg/m2 Valerie ey Seybold - External Oxygen saturation in Arterial blood by Pulse oximetry 2023-07-03 13:45:00 100 /min Sejal Seybo ld - External Systolic blood pressure 2023-04-03 13:51:00 134 mm[Hg] Sejal Seybo ld - External Diastolic blood pressure 2023-04-03 13:51:00 80 mm[Hg] Sejal Seybo ld - External Heart rate 2023-04-03 13:51:00 71 /min Cira narayan Seybold - External Body temperature 2023-04-03 13:51:00 36.56 Shyla Sejal Seybold - External Respiratory rate 2023-04-03 13:51:00 20 /min Sejal Seybold - External Body height 2023-04-03 13:51:00 160 cm Valerie ey Seybold - External Body weight 2023-04-03 13:51:00 120.203 kg Valerie ey Seybold - External BMI 2023-04-03 13:51:00 46.94 kg/m2 Valerie ey Seybold - External Oxygen saturation in Arterial blood by Pulse oximetry 2023-04-03 13:51:00 88 /min Sejal Seybo ld - External Systolic blood pressure 2022-07-02 13:32:00 126 mm[Hg] Sejal Seybo ld - External Diastolic blood pressure 2022-07-02 13:32:00 74 mm[Hg] Sejal Seybo ld - External Heart rate 2022-07-02 13:32:00 75 /min Kelse y Seybold - External Body temperature 2022-07-02 13:32:00 35.5 Shyla Sejal Seybold - External Respiratory rate 2022-07-02 13:32:00 15 /min Sejal Seybold - External Body height 2022-07-02 13:32:00 160 cm Valerie ey Seybold - External Body weight 2022-07-02 13:32:00 120.203 kg Valerie ey Seybold - External BMI 2022-07-02 13:32:00 46.94 kg/m2 Valerie ey Seybold - External Systolic blood pressure 2022-04-02 15:09:00 162 mm[Hg] Sejal Seybo ld - External Diastolic blood pressure 2022-04-02 15:09:00 66 mm[Hg] Sejal Seybo ld - External Heart rate 2022-04-02 15:09:00 81 /min Kelse y Seybold - External Body temperature 2022-04-02 15:09:00 35.28 Shyla Sejal Seybold - External Respiratory rate 2022-04-02 15:09:00 16 /min Sejal Seybold - External Body height 2022-04-02 15:09:00 160 cm Valerie ey Seybold - External Body weight 2022-04-02 15:09:00 118.389 kg Valerie ey Seybold - External BMI 2022-04-02 15:09:00 46.23 kg/m2 Valerie ey Seybold - External bmi 2021-05-23 10:20:00 44.85 kg/m2 [facility] oximetry 2021-05-23 10:20:00 96 % [facility] respiratory rate 2021-05-23 10:20:00 18 /min [facility] blood pressure systolic 2021-05-23 10:20:00 136 mm[Hg] [facility] blood pressure diastolic 2021-05-23 10:20:00 84 mm[Hg] [facility] height 2021-05-23 10:20:00 Commo n [facility] weight 2021-05-23 10:20:00 253.2 [lb_av] Co [facility] temperature 2021-05-23 10:20:00 97.3 [degF] Com [facility] height 2020-11-07 14:00:00 Commo n [facility] weight 2020-11-07 14:00:00 251.8 [lb_av] Co [facility] temperature 2020-11-07 14:00:00 97.7 [degF] Com [facility] bmi 2020-11-07 14:00:00 44.60 kg/m2 Comm on [facility] oximetry 2020-11-07 14:00:00 94 % Commo n [facility] blood pressure systolic 2020-11-07 14:00:00 181 mm[Hg] Common [facility] blood pressure diastolic 2020-11-07 14:00:00 81 mm[Hg] [facility] height 2020-11-07 13:40:00 Commo n [facility] weight 2020-11-07 13:40:00 251 [lb_av] Comm on [facility] temperature 2020-11-07 13:40:00 97.7 [degF] Com [facility] bmi 2020-11-07 13:40:00 44.46 kg/m2 Comm on [facility] oximetry 2020-11-07 13:40:00 96 % Commo n [facility] respiratory rate 2020-11-07 13:40:00 18 /min Common [facility] blood pressure systolic 2020-11-07 13:40:00 138 mm[Hg] [facility] blood pressure diastolic 2020-11-07 13:40:00 70 mm[Hg] [facility] Encounters Start Date/Time End Date/Time Encounter Type Admission Type Attending Clinicians Care Facility Care Department Encounter ID Source 2021-11-22 11:49:00 Outpatient Hidalgo, Na STLMLC STLMLC [id number] [facility] 2021-06-15 09:13:01 Outpatient Hidalgo, Na STLMLC STLMLC [id number] [facility] 2021-06-14 14:44:01 Outpatient Hidalgo, Na STLMLC STLMLC [id number] [facility] 2021-06-13 09:12:02 Outpatient Hidalgo, Na STLMLC STLMLC [id number] [facility] 2021-05-30 14:09:01 Outpatient Rocky, Na STLMLC STLMLC [id number] [facility] 2021-05-19 10:41:00 Outpatient STLMLC STLMLC [id number] [facility] 2021-05-10 14:39:41 Outpatient STLMLC STLMLC [id number] [facility] 2021-05-10 12:25:30 Outpatient STLMLC STLMLC [id number] [facility] 2021-05-10 11:36:02 Outpatient Peters, Manish STLMLC STLMLC [id number] [facility] 2021-05-10 11:32:59 Outpatient Peters, Manish STLMLC STLMLC [id number] [facility] 2021-05-10 11:27:38 Outpatient Peters, Manish STLMLC STLMLC [id number] [facility] 2021-05-10 11:27:11 Outpatient Peters, Manish STLMLC STLMLC [id number] [facility] 2021-05-10 11:15:04 Outpatient Peters, Manish STLMLC STLMLC [id number] [facility] 2024-01-03 08:15:00 2024-01-03 08:15:00 Outpatient PREZAS, AMALIA SEJAL CHOI [id number] [facility] 2023-12-24 00:00:00 2023-12-24 00:00:00 Outpatient PREZAS, AMALIA SEJAL CHOI [id number] [facility] 2023-08-09 00:00:00 2023-08-09 00:00:00 Outpatient PREZAS, AMALIA SEJAL CHOI [id number] [facility] 2023-07-07 00:00:00 2023-07-07 00:00:00 Outpatient PREZAS, AMALIA SEJAL CHOI [id number] [facility] 2023-07-03 08:45:00 2023-07-03 08:45:00 Outpatient PREZAS, AMALIA SEJAL CHOI [id number] [facility] 2023-05-04 00:00:00 2023-05-04 00:00:00 Outpatient PREZAS, AMALIA [facility] [id number] [facility]:00 2023-04-23 00:00:00 Outpatient PREZAS, AMALIA SE[facility]AL CHO[facility] [id number] [facility] 2023-04-22 08:00:00 2023-04-22 08:00:00 Outpatient LAB90 SEJAL CHOI [id number] [facility] 2023-04-13 00:00:00 2023-04-13 00:00:00 Outpatient PREZAS, AMALIA SEJAL CHOI [id number] Se[facility]al [facility] 2023-04-03 08:00:00 2023-04-03 08:00:00 Outpatient PREZAS, AMALIA SEJAL CHOI [id number] [facility] 2023-02-09 00:00:00 2023-02-09 00:00:00 Outpatient [email or web address]_[email or web address] [facility] [id number] [facility] 2022-10-26 00:00:2022-10-26 00:00:00 Outpatient PREZAS, AMALIA CHOI SEJAL [id number] [facility]22-[facility]-16 00:00:00 2022-10-16 00:00:00 Outpatient PREZAS, AMALIA CHOI SJEAL [id number] [facility] 2022-09-12 00:00:00 2022-09-12 00:00:00 Outpatient PREZAS, AMALIA CHOI SEJAL [id number] [facility] 2022-09-11 00:00:00 2022-09-11 00:00:00 Outpatient PREZAS, AMALIA CHOI SEJAL [id number] [facility] 2022-08-31 08:15:00 2022-08-31 08:15:00 Outpatient PREZAS, AMALIA CHOI SEJAL [id number] [facility] 2022-07-05 00:00:00 2022-07-05 00:00:00 Outpatient PREZAS, AMALIA CHOI SEJAL [id number] [facility] 2022-07-05 00:00:00 2022-07-05 00:00:00 Outpatient PREZAS, AMALIA CHOI SEJAL [id number] [facility] 2022-07-02 08:45:00 2022-07-02 08:45:00 Outpatient PREZAS, AMALIA CHOI SEJAL [id number] [facility] 2022-05-07 00:00:00 2022-05-07 00:00:00 Outpatient PREZAS, AMALIA SEJAL CHOI [id number] [facility] 2022-04-30 00:00:00 2022-04-30 00:00:00 Outpatient PREZAS, AMALIA SEJAL CHOI [id number] Sejal Seybold 2022-04-03 00:00:00 2022-04-03 00:00:00 Outpatient PREZAS, AMALIA SEJAL CHOI [id number] Sejal Seybold 2022-04-02 10:20:00 2022-04-02 10:20:00 Outpatient LABBarbara CHOI [id number] Sejal Seybold 2022-04-02 09:15:2022-04-02 09:15:00 Outpatient PREZAS, AMALIA CHOI [id number] [facility] 2022-01-05 00:00:00 2022-01-05 00:00:00 Outpatient PREZAS, AMALIA CHOI [id number] Sejal Webber 2022-01-04 08:20:00 2022-01-04 08:20:00 Outpatient LAB90 SEJAL CHOI [id number] [facility] 2022-01-01 09:00:00 2022-01-01 09:00:00 Outpatient PREZAS, AMALIA CHOI [id number] [facility] 2021-12-22 09:30:00 2021-12-22 09:30:00 Outpatient PREZAS, AMALIA CHOI [id number] [facility] 2021-12-19 13:45:00 2021-12-19 13:45:00 Outpatient PREZASAMALIA [id number] [facility] 2021-07-07 00:00:00 2021-07-07 00:00:00 (TEL) STLMLC STLMLC [id number] [facility] 2021-07-06 00:00:00 2021-07-06 00:00:00 (TEL) STLMLC STLMLC [id number] [facility] 2021-06-14 00:00:00 2021-06-14 00:00:00 (COVID Inj) COVID Injection STLMLC STLMLC [id number] [facility] 2021-06-14 00:00:00 2021-06-14 00:00:00 (TEL) STLMLC STLMLC [id number] [facility] 2021-06-08 00:00:00 2021-06-08 00:00:00 (TEL) STLMLC STLMLC [id number] [facility] 2021-05-23 00:00:00 2021-05-23 00:00:00 OFFICE VISIT ESTAB PT LEVEL 4 STLMLC STLMLC [id number] [facility] 2020-11-07 00:00:00 2020-11-07 00:00:00 SUB ANNUAL MCR WELLNESS VISIT STLMLC STLMLC [id number] [facility] 2020-11-07 00:00:00 2020-11-07 00:00:00 OFFICE VISIT EST PT LEVEL 3 STLMLC STLMLC [id number] [facility] 2020-05-12 00:00:00 2020-05-12 00:00:00 Outpatient STLMLC STLMLC [id number] [facility] 2019-11-10 08:40:00 2019-11-10 08:40:00 [place] [facility] [place] [employer] [facility] [facility] [id number] [facility] 2019-10-07 11:40:00 2019-10-07 11:40:00 [facility] [facility] [place] [employer] [facility] [id number] [facility] 2019-06-30 10:00:00 2019-06-30 10:00:00 [facility] [id number] [facility]
[2023-12-24] MEDS ORDERED: dexAMETHasone 10 MG/ML VIAL ONE (10:37)
[2023-12-24] MEDS ORDERED: ONDANSETRON 4 MG/2 ML VIAL ONE (10:37)
[2023-12-24] MEDS ORDERED: KETOROLAC 30 MG/ML INJ ONE (10:38)
[2023-12-24] MEDS ORDERED: MORPHINE 4 MG/ML SYR ONE (10:38)
[2023-12-24] MEDS ORDERED: NA CHLORIDE 0.9% 1,000 ML ONE (10:38)
[2023-12-24] MEDS ORDERED: DIAZEPAM 5 MG TABLET ONE (10:38)
[2023-12-24 10:50] LABS: Specific Gravity 1.005 (1.005-1.030); Sqamous Epithelial <5 /HPF (None Seen); Urine Bacteria <20 /HPF (<20); Urine Bilirubin NEGATIVE (Negative); Urine Blood Negative (Negative); Urine Clarity Turbid (Clear); Urine Color Colorless (Yellow); Urine Culture Reflex Order NOT NEEDED; Urine Glucose NEGATIVE (Negative); Urine Ketones NEGATIVE (Negative); Urine Microscopic Reflex YN ORDER UMIC; Urine Nitrite NEGATIVE (Negative); Urine Protein NEGATIVE (Negative); Urine RBC <5 /HPF (None Seen); Urine Urobilinogen Normal (Normal); Urine WBC <5 /HPF (<5)
--- NOTE | 2023-12-24 10:52 | RAD REPORT ---
EXAM DESCRIPTION: CTSpine Lumbar Wo Con12/24/2023 10:41 am CLINICAL HISTORY: Radiculopathy COMPARISON: None TECHNIQUE: Computed axial tomography lumbar spine was obtained with coronal and sagittal reconstruct ion. All CT scans are performed using dose optimization technique as appropriate and may include automated exposure control or mA/KV adjustment according to patient size. FINDINGS: No fracture is seen. No dislocation noted. A disc bulge, ligamentum flavum facet hypertrophy L4-5 results in marked narrowing of the thecal sac. Mild to moderate narrowing of the neural foramina bilaterally Disc bulge L5-S1. Epidural lipomatosis is present. A moderate central spinal stenosis present Facet h ypertrophy. Moderate to marked narrowing of the right neural foramina. Aorto bi-iliac bypass IMPRESSION: Spondylosis L4-5 resulting in marked central spinal stenosis Spondylosis and epidural lipomatosis L5-S1 results in moderate central spinal stenosis Nonemergent MRI lumbar spine may be helpful for further evaluation
[2023-12-24 11:05] LABS: Absolute Basophils 0.1 K/uL (0-0.5); Absolute Eosinophils 0.1 K/uL (0-0.5); Absolute Lymphocytes (CBC) 3.1 K/uL (0.7-4.9); Absolute Monocytes 0.8 K/uL (0.1-1.3); Absolute Neutrophil 4.2 K/uL (1.8-8.0); Basophils % 0.7 % (0-1.3); Eosinophils % 1.6 % (0-4.4); Hematocrit 42.2 % (36.0-45.0); Hemoglobin 13.9 g/dL (12.0-15.0); Lymphocytes % 37.5 % (15.3-44.8); MCH 31.7 pg (27.0-35.0); MPV 8.9 fL (7.6-11.3); Monocytes % 9.8 % (3.3-12.3); Neutrophils % 50.4 % (41.7-73.7); Platelets 199 thou/uL (152-406); Red Cell Distribution Width 14.3 % (12.1-15.2)
[2023-12-24 11:23] LABS: Albumin 3.4 g/dL (3.4-5.0); Albumin/Globulin Ratio 0.8 (1.1-1.8); Anion Gap 9.5 mEq/L (5.0-15.0); Bilirubin Total 0.9 mg/dL (0.2-1.0); Globulin 4.3 g/dL (2.3-3.5); Potassium 3.5 mEq/L (3.5-5.1); Protein, Total 7.7 g/dL (6.4-8.2)
--- NOTE | 2023-12-24 12:09 | EDPHYS ---
Physician Documentation [facility] Name: Mary Bernardo Age: 73 yrs Sex: Female : 1950 Arrival Date: 12/24/2023 Time: 09:54 Bed 6 Private MD: EMMANUEL Physician Ken Rajput HPI: 12/23 10:36 This 73 yrs old Female presents to ER via Ambulatory with complaints of Back beata Pain. 10:36 The patient presents with pain that is acute, and decreased range of motion. beata 10:36 The symptoms are located in the low back, lumbar spine. Onset: The symptoms/episode beata began/occurred 3 day(s) ago. The pain radiates to the right low back. Associated signs and symptoms: The patient has no apparent associated signs or symptoms. Modifying factors: The patient symptoms are alleviated by remaining still, the patient symptoms are aggravated by any movement. Severity of symptoms: At their worst the symptoms were moderate, in the emergency department the symptoms are unchanged. The patient has not experienced similar symptoms in the past. Historical: - Allergies: 10:05 Cipro PO; cm10 10:05 PENICILLINS; cm10 - Home Meds: 10:05 aspirin 81 mg Oral chew 1 tab once daily [Active]; metoprolol succinate 50 mg oral cm10 Tablet, Extended Release 24 hr [Active]; ranolazine 500 mg oral Tablet, Extended Release 12 hr [Active]; atorvastatin 40 mg oral tablet [Active]; furosemide 40 mg Oral tablet [Active]; isosorbide mononitrate 30 mg Oral Tablet, Extended Release 24 hr [Active]; - PMHx: 10:05 Hyperlipidemia; Hypertension; Myocardial infarction; cm10 - PSHx: 10:05 Coronary artery bypass graft; Total abdominal hysterectomy; cm10 - Immunization history:: Adult Immunizations up to date. - Infectious Disease History:: Denies. - Social history:: Smoking status: Patient/guardian denies using tobacco, the patient reports quitting approximately 7 years ago. ROS: 10:38 Constitutional: Negative for fever, chills, and weight loss, Eyes: Negative for injury, beata pain, redness, and discharge, ENT: Negative for injury, pain, and discharge, Neck: Negative for injury, pain, and swelling, Cardiovascular: Negative for chest pain, palpitations, and edema, Respiratory: Negative for shortness of breath, cough, wheezing, and pleuritic chest pain, Abdomen/GI: Negative for abdominal pain, nausea, vomiting, diarrhea, and constipation, : Negative for injury, bleeding, discharge, and swelling, MS/Extremity: Negative for injury and deformity, Skin: Negative for injury, rash, and discoloration, Neuro: Negative for headache, weakness, numbness, tingling, and seizure, Psych: Negative for depression, anxiety, suicide ideation, homicidal ideation, and hallucinations, Allergy/Immunology: Negative for hives, rash, and allergies, Endocrine: Negative for neck swelling, polydipsia, polyuria, polyphagia, and marked weight changes, Hematologic/Lymphatic: Negative for swollen nodes, abnormal bleeding, and unusual bruising, 10:38 Back: Positive for injury or acute deformity, decreased range of motion, flank pain, on the right, Exam: 10:38 Constitutional: This is a well developed, well nourished patient who is awake, alert, beata and in no acute distress. Head/Face: Normocephalic, atraumatic. Eyes: Pupils equal round and reactive to light, extra-ocular motions intact. Lids and lashes normal. Conjunctiva and sclera are non-icteric and not injected. Cornea within normal limits. Periorbital areas with no swelling, redness, or edema. ENT: Nares patent. No nasal discharge, no septal abnormalities noted. Tympanic membranes are normal and external auditory canals are clear. Oropharynx with no redness, swelling, or masses, exudates, or evidence of obstruction, uvula midline. Mucous membranes moist. Neck: Trachea midline, no thyromegaly or masses palpated, and no cervical lymphadenopathy. Supple, full range of motion without nuchal rigidity, or vertebral point tenderness. No Meningismus. Chest/axilla: Normal chest wall appearance and motion. Nontender with no deformity. No lesions are appreciated. Cardiovascular: Regular rate and rhythm with a normal S1 and S2. No gallops, murmurs, or rubs. Normal PMI, no JVD. No pulse deficits. Respiratory: Lungs have equal breath sounds bilaterally, clear to auscultation and percussion. No rales, rhonchi or wheezes noted. No increased work of breathing, no retractions or nasal flaring. Abdomen/GI: Soft, non-tender, with normal bowel sounds. No distension or tympany. No guarding or rebound. No evidence of tenderness throughout. Female : Normal external genitalia. Skin: Warm, dry with normal turgor. Normal color with no rashes, no lesions, and no evidence of cellulitis. MS/ Extremity: Pulses equal, no cyanosis. Neurovascular intact. Full, normal range of motion. Neuro: Awake and alert, GCS 15, oriented to person, place, time, and situation. Cranial nerves II-XII grossly intact. Motor strength 5/5 in all extremities. Sensory grossly intact. Cerebellar exam normal. Normal gait. Psych: Awake, alert, with orientation to person, place and time. Behavior, mood, and affect are within normal limits. 10:38 Back: pain, that is mild, that is moderate, of the right low back, ROM is painful, with rotation to the right, with rotation to the left, with flexion, with extension, normal spinal alignment noted, CVA tenderness, is absent, vertebral tenderness, is not appreciated, Vital Signs: 10:04 BP 179 / 68; Pulse 59; Resp 19; Temp 97.3; Pulse Ox 96% on R/A; Weight 117.93 kg; cm10 Height 5 ft. 3 in. ; Pain 8/10; 12:10 BP 142 / 85; Pulse 74; Resp 16; Pulse Ox 98% ; dd2 10:04 Body Mass Index 46.06 (117.93 kg, 160.02 cm) cm10 10:04 Pain Scale: Adult cm10 MDM: 09:58 Patient medically screened. beata 10:40 Differential diagnosis: Fatigue Fracture Ligament Injury ruptured disc, spinal injury, beata sprain, Ureterolithiasis vertebral fracture. Data reviewed: vital signs, nurses notes, lab test result(s), radiologic studies, CT scan. Consideration of Admission/Observation Escalation of care including admission/observation considered. I considered the following discharge prescriptions or medication management in the emergency department Medications were administered in the Emergency Department. See MAR. Independent interpretation of the following test(s) in the Emergency Department CT Scan: My interpretation is ct lumbar. Discussion of test interpretation with radiology: I had a discussion with radiology regarding a test interpretation. no specific trauma. Test considered but Not performed: MRI: no mri. Historians other than the Patient: Spouse/Significant Other: spouce well informed. Care significantly affected by the following chronic conditions: Hypertension, Obesity, mi, hyperlipidemia. 12/23 10:27 Order name: CBC with Diff; Complete Time: 11:52 [facility] 12/23 10:27 Order name: Comprehensive Metabolic Panel; Complete Time: 11:52 beata 12/23 10:27 Order name: Urinalysis w/ reflexes; Complete Time: 11:52 [facility] 12/23 10:27 Order name: CT Lumbar Spine Wo Con; Complete Time: 11:52 beata Administered Medications: 11:15 Drug: Ondansetron IVP 4 mg IVP once; over 2 minutes Route: IVP; Site: right antecubital;dd2 11:30 Follow up: Response: No adverse reaction dd2 11:15 Drug: Diazepam PO 10 mg PO once Route: PO; dd2 11:45 Follow up: Response: No adverse reaction dd2 11:16 Drug: NS 0.9% IV 1000 ml IV at 1 bolus Per protocol; 1000 mL bolus Route: IV; Rate: 1 dd2 bolus; Site: right antecubital; 11:31 Follow up: Response: No adverse reaction dd2 12:20 Follow up: Response: No adverse reaction; IV Status: Completed infusion; IV Intake: dd2 1000ml 11:16 Drug: Ketorolac IVP 30 mg IVP once Route: IVP; Site: right antecubital; dd2 11:31 Follow up: Response: No adverse reaction dd2 11:16 Drug: Decadron - Dexamethasone IVP 10 mg IVP once Route: IVP; Site: right antecubital; dd2 11:31 Follow up: Response: No adverse reaction dd2 11:16 Drug: morphine IVP or IV 4 mg IVP once over 4 mins Route: IVP; Infused Over: 4 mins; dd2 Site: right antecubital; 11:31 Follow up: Response: No adverse reaction dd2 Disposition Summary: 12/24/23 12:08 Discharge Ordered Notes: Location: Home beata Problem: new beata Symptoms: have improved beata Condition: Stable beata Diagnosis - Sciatica, right side beata - Low back pain beata - Other injury of muscle, fascia and tendon of lower back beata - Abnormal findings on diagnostic imaging of other specified body structures - L4-5 beata SPONDYLOSIS, L5-S1 EPIDURAL LIPOMATOSIS - Spondylolysis, lumbar region beata Followup: beata - With: Private Physician - When: 2 - 3 days - Reason: Recheck today's complaints, Continuance of care, Re-evaluation by your physician Followup: [facility] - With: Handy Sifuentes MD - When: 2 - 3 days - Reason: Recheck today's complaints, Continuance of care, Re-evaluation by your physician Discharge Instructions: - Discharge Summary Sheet beata - Acute Back Pain, Adult beata - Sciatica beata - Sciatica, [id number] beata - Spondylolysis [facility] Forms: - Medication Reconciliation Form [facility] - Antibiotic Education beata - Prescription Opioid Use beata - Patient Portal Instructions [facility] - Leadership Thank You Letter [facility] Prescriptions: - acetaminophen-codeine 300-30 mg Oral tablet - take 2 tablet ORAL route every 6 hours; 20 tablet; Refills: 0, Product [facility] Selection Permitted - dexamethasone 4 mg Oral tablet - take 1 tablet ORAL route once daily; 5 tablet; Refills: 0, Product Selection [facility] Permitted - Diclofenac Sodium 75 mg Oral tablet, delayed release (enteric coated) - take 1 tablet ORAL route 2 times per day; 20 tablet; Refills: 0, Product [facility] Selection Permitted - Cyclobenzaprine 5 mg Oral tablet - take 1 tablet ORAL route 3 times per day As needed; 21 tablet; Refills: 0, [facility] Product Selection Permitted Signatures: Dispatcher [employer] EDMS Ken Rajput MD MD cha Martinez, Clarissa RN RN cm10 BRE SHELDON RN RN dd2 Corrections: (The following items were deleted from the chart) 10:27 10:27 CBC+H.LAB.BRZ ordered. EDMS EDMS 10:27 10:27 COMPREHENSIVE METABOLIC PANEL+C.LAB.BRZ ordered. EDMS EDMS 10:27 10:27 Urinalysis+U.LAB.BRZ ordered. EDMS EDMS 10:27 10:27 Spine Lumbar Wo Con+CT.RAD.BRZ ordered. EDMS EDMS
--- NOTE | 2023-12-24 12:09 | ER ---
Nurse's Notes [facility] Name: Mary Bernardo Age: 73 yrs Sex: Female : 1950 Arrival Date: 12/24/2023 Time: 09:54 Bed 6 Private MD: Diagnosis: Sciatica, right side;Low back pain;Other injury of muscle, fascia and tendon of lower back;Abnormal findings on diagnostic imaging of other specified body [id number] SPONDYLOSIS, L5-S1 EPIDURAL LIPOMATOSIS;Spondylolysis, lumbar region Presentation: 12/23 10:04 Chief complaint: Patient states: Right sided back pain that radiates to lower back cm10 onset Saturday. Pt denies any trauma or injury. Coronavirus screen: Client denies travel out of the [place] in the last 14 days. Ebola Screen: Patient denies travel to an Ebola-affected area in the 21 days before illness onset. No symptoms or risks identified at this time. Initial Sepsis Screen: Does the patient meet any 2 criteria? No. Patient's initial sepsis screen is negative. Does the patient have a suspected source of infection? No. Patient's initial sepsis screen is negative. Risk Assessment: Do you want to hurt yourself or someone else? Patient reports no desire to harm self or others. Onset of symptoms was December 24, 2023. 10:04 Method Of Arrival: Ambulatory cm10 10:04 Acuity: DIEUDONNE 4 cm10 Triage Assessment: 10:07 General: Appears in no apparent distress. uncomfortable, Behavior is calm, cooperative. cm10 Pain: Complains of pain in low back area Pain currently is 7 out of 10 on a pain scale. Neuro: No deficits noted. Level of Consciousness is awake, alert, obeys commands, Oriented to person, place, time, situation, Appropriate for age. Neuro: Respiratory: No deficits noted. Airway is patent Respiratory effort is even, unlabored, Respiratory pattern is regular, symmetrical. Derm: No deficits noted. Skin is pink, warm \T\ dry. Musculoskeletal: Range of motion: intact in all extremities, Reports pain in low back area. Historical: - Allergies: 10:05 Cipro PO; cm10 10:05 PENICILLINS; cm10 - Home Meds: 10:05 aspirin 81 mg Oral chew 1 tab once daily [Active]; metoprolol succinate 50 mg oral cm10 Tablet, Extended Release 24 hr [Active]; ranolazine 500 mg oral Tablet, Extended Release 12 hr [Active]; atorvastatin 40 mg oral tablet [Active]; furosemide 40 mg Oral tablet [Active]; isosorbide mononitrate 30 mg Oral Tablet, Extended Release 24 hr [Active]; - PMHx: 10:05 Hyperlipidemia; Hypertension; Myocardial infarction; cm10 - PSHx: 10:05 Coronary artery bypass graft; Total abdominal hysterectomy; cm10 - Immunization history:: Adult Immunizations up to date. - Infectious Disease History:: Denies. - Social history:: Smoking status: Patient/guardian denies using tobacco, the patient reports quitting approximately 7 years ago. Screenin:08 [facility] ED Fall Risk Assessment (Adult) History of falling in the last 3 months, cm10 including since admission No falls in past 3 months (0 pts) Confusion or Disorientation No (0 pts) Intoxicated or Sedated No (0 pts) Impaired Gait No (0 pts) Mobility Assist Device Used No (0 pt) Altered Elimination No (0 pt) Score/Fall Risk Level 0 - 2 = Low Risk Oriented to surroundings, Maintained a safe environment, Hourly rounding (assess needs \T\ fall precautionary measures) done. Abuse screen: Denies threats or abuse. Denies injuries from another. Nutritional screening: No deficits noted. Tuberculosis screening: No symptoms or risk factors identified. Assessment: 10:15 General: Appears uncomfortable, Behavior is calm, cooperative, appropriate for age. dd2 Pain: Complains of pain in right low back and back Pain currently is 9 out of 10 on a pain scale. Neuro: No deficits noted. Level of Consciousness is awake, alert, obeys commands, Oriented to person, place, time, situation, Reports Pain to Rt middle and Rt lower back. Cardiovascular: No deficits noted. Respiratory: No deficits noted. Airway is patent Respiratory effort is even, unlabored. GI: No deficits noted. No signs and/or symptoms were reported involving the gastrointestinal system. : No deficits noted. No signs and/or symptoms were reported regarding the genitourinary system. EENT: No deficits noted. No signs and/or symptoms were reported regarding the EENT system. Derm: No deficits noted. No signs and/or symptoms reported regarding the dermatologic system. Musculoskeletal: No deficits noted. No signs and/or symptoms reported regarding the musculoskeletal system. Vital Signs: 10:04 BP 179 / 68; Pulse 59; Resp 19; Temp 97.3; Pulse Ox 96% on R/A; Weight 117.93 kg; cm10 Height 5 ft. 3 in. ; Pain 8/10; 12:10 BP 142 / 85; Pulse 74; Resp 16; Pulse Ox 98% ; dd2 10:04 Body Mass Index 46.06 (117.93 kg, 160.02 cm) cm10 10:04 Pain Scale: Adult cm10 ED Course: 09:57 Patient arrived in ED. im 09:58 Ken Rajput MD is Attending Physician. beata 10:05 Triage completed. cm10 10:07 Arm band placed on Patient placed in an exam room, on a stretcher. cm10 10:15 Patient has correct armband on for positive identification. Bed in low position. Call dd2 light in reach. Side rails up X2. Provided Education on: call light, procedures, labs, mediations. Client placed on continuous cardiac and pulse oximetry monitoring. NIBP monitoring applied. Door closed. Warm blanket given. Pillow given. 10:15 No provider procedures requiring assistance completed. dd2 10:16 BRE SHELDON, RN is Primary Nurse. dd2 10:40 CT Lumbar Spine Wo Con In Process Unspecified. EDMS 10:54 Comprehensive Metabolic Panel Sent. bc6 10:54 CBC with Diff Sent. bc6 10:55 Initial lab(s) drawn, by la, sent to lab. Inserted saline lock: 20 gauge in right bc6 antecubital area, using aseptic technique. Blood collected. Flushed with 10 mL NS. 12:06 Handy Sifuentes MD is Referral Physician. beata 12:47 IV discontinued, intact, bleeding controlled, No redness/swelling at site. Pressure dd2 dressing applied. Administered Medications: 11:15 Drug: Ondansetron IVP 4 mg IVP once; over 2 minutes Route: IVP; Site: right antecubital;dd2 11:30 Follow up: Response: No adverse reaction dd2 11:15 Drug: Diazepam PO 10 mg PO once Route: PO; dd2 11:45 Follow up: Response: No adverse reaction dd2 11:16 Drug: NS 0.9% IV 1000 ml IV at 1 bolus Per protocol; 1000 mL bolus Route: IV; Rate: 1 dd2 bolus; Site: right antecubital; 11:31 Follow up: Response: No adverse reaction dd2 12:20 Follow up: Response: No adverse reaction; IV Status: Completed infusion; IV Intake: dd2 1000ml 11:16 Drug: Ketorolac IVP 30 mg IVP once Route: IVP; Site: right antecubital; dd2 11:31 Follow up: Response: No adverse reaction dd2 11:16 Drug: Decadron - Dexamethasone IVP 10 mg IVP once Route: IVP; Site: right antecubital; dd2 11:31 Follow up: Response: No adverse reaction dd2 11:16 Drug: morphine IVP or IV 4 mg IVP once over 4 mins Route: IVP; Infused Over: 4 mins; dd2 Site: right antecubital; 11:31 Follow up: Response: No adverse reaction dd2 Medication: 10:08 VIS not applicable for this client. cm10 Intake: 12:20 IV: 1000ml; Total: 1000ml. dd2 Outcome: 12:08 Discharge ordered by MD. cota 12:47 Discharged to home via wheelchair, dd2 12:47 Condition: stable 12:47 Discharge instructions given to patient, Instructed on discharge instructions, follow up and referral plans. medication usage, Demonstrated understanding of instructions, follow-up care, medications, Prescriptions given X 4, 12:47 Patient left the ED. dd2 Signatures: Dispatcher [employer] Ken Sharp MD MD cha [place], Breana 6 Mag Johnson Clarissa, RN RN cm10 BRE SHELDON RN RN dd2
[2023-12-24 13:02] VITALS: TEMP 97.3
[2023-12-24 13:03] VITALS: BP 142/85; O2SAT 98
== END 2023-12-24 12:47 | disposition home or self-care (01) ==
LOC: ER 09:54
DX: M54.31 Sciatica, right side (principal); S39.092A Other injury of muscle, fascia and tendon of lower back, initial encounter; M43.06 Spondylolysis, lumbar region; E88.2 Lipomatosis, not elsewhere classified; Z95.1 Presence of aortocoronary bypass graft
CPT/HCPCS: 96361; 85025; 81001; 36415; 80053; 72131; 96375; 96374; 99284; J1100; J2405; J7030

== ENCOUNTER 2024-11-19 07:30 | Day surgery (SDC) | payer OTHER ==
[2024-11-18 10:58] LABS: Absolute Lymphocytes (CBC) 2.7 K/uL (0.7-4.9); Hematocrit 40.8 % (36.0-45.0); Hemoglobin 13.7 g/dL (12.0-15.0); MCH 31.6 pg (27.0-35.0); MCHC 33.5 g/dL (32.0-36.0); MCV 94.2 fL (80-100); MPV 8.9 fL (7.6-11.3); Nucleated RBC Absolute Count 0.0 (0-0); Nucleated Red Blood Cells % 0.2 % (0-0); RBC Red Blood Cell Count 4.33 M/uL (3.86-4.86); White Blood Count 6.50 thou/uL (4.3-10.9)
[2024-11-18 11:07] LABS: PT Prothrombin Time 13.1 SECONDS (10-13.0); PTT, Activated Partial Thromb 33.1 SECONDS (27.2-37.4); Protime INR 1.16
[2024-11-18 11:22] LABS: Anion Gap 9.9 mEq/L (5.0-15.0); BUN Blood Urea Nitrogen 21.0 mg/dL (7-18); Glucose Level 105.0 mg/dL (74-106); Potassium 3.9 mEq/L (3.5-5.1)
--- NOTE | 2024-11-18 14:49 | RAD REPORT ---
EXAMINATION: TWO VIEW CHEST XR CLINICAL INDICATION: Female, 73 years old. [facility] Pre-op pending heart catheterization. Hypertension TECHNIQUE: 2 view radiographs of the chest were performed. COMPARISON: 02/08/2023 FINDINGS: The lungs are well inflated and clear. No pneumothorax or sizable effusion. The heart is normal in si ze. Mediastinal contours are unchanged with sequelae of median sternotomy. IMPRESSION: No acute or significant abnormalities.
[2024-11-19] MEDS ORDERED: NA CHLORIDE 0.9% 500 ML ONE (07:43)
[2024-11-19] MEDS ORDERED: HEPA 1000U/500MLS 2,000 UNIT/1,000 ML BAG IV ONE (07:53)
[2024-11-19] MEDS ORDERED: HEPARIN 10,000 UNIT/10 ML VIAL IV ONE (07:53)
[2024-11-19] MEDS ORDERED: HEPARIN 5000 UNIT/ML 1 ML VIAL ONE (07:54)
[2024-11-19] MEDS ORDERED: ASPIRIN 325 MG TAB ONE (07:54)
[2024-11-19] MEDS ORDERED: TICAGRELOR 90 MG TABLET PO ONE (07:54)
[2024-11-19] MEDS ORDERED: ATROPINE SULF 1 MG/10 ML SYR IV ONE (07:54)
[2024-11-19] MEDS ORDERED: CLOPIDOGREL 75 MG TABLET ONE (07:54)
[2024-11-19] MEDS ORDERED: LIDOCAINE 1% 20 ML MDV ONE (07:54)
[2024-11-19] MEDS ORDERED: MIDAZOLAM HCL 2 MG/2 ML INJ ONE (08:35)
[2024-11-19] MEDS ORDERED: FENTANYL CITR 100 MCG/2 ML ONE (08:35)
[2024-11-19 13:30] VITALS: BP 124/52; O2SAT 98
--- NOTE | 2024-11-20 19:48 | OP ---
Date of Procedure: 11/19/2024 Surgeon: Justice Burkett Procedure Performed: Selective coronary angiogram of the bypass graft. Indication For Procedure: Abnormal stress test with shortness of breath. Complications: None. Estimated Blood Loss: Less than 50 cc. Access: Left ulnar closed by TR band. Sedation Time: 30 minutes with 1 of Versed and 25 of fentanyl. Description Of Procedure: After risks, and benefits, and alternatives were explained to the patient, patient agreed to proceed with procedure and signed informed consent. The patient was brought back to the cath lab technologist, prepped and draped in sterile fashion. Time-out was performed. Sedation was admini stered. Next, left ulnar access was obtained using ultrasound-guided micropuncture technique. Six-F rench catheter was introduced and first advanced the JR4 catheter into the left subclavian artery and selective angiogram of the PATTON to the LAD was done. That was later advanced for the selective omar ogram of the right coronary arteries, and then this was later exchanged with a JL4 catheter for the s elective angiogram of the left coronary arteries. At the end of procedure, catheter was removed over a J-wire. Sheath was removed. TR band was applied. Hemostasis was achieved, and the patient was m alda back to Recovery in stable condition. Findings: 1. Left main normal. 2. LAD; proximal 100% occluded. 3. Left circ; mid 20% to 30% disease, then mild luminal irregularities. 4. OM1; 100% occluded. 5. RCA; small with mid 100% occluded, long segment. Grafts: PATTON to LAD, very tortuous, patent with 20% disease at touchdown. Assessment And Plan: 1. 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 2. Mild left circ disease. 3. Occluded RCA and OM grafts. Plan is to continue medical management. There is no option for intervention in this patient. ARRIAGA/SUSY Voice ID: [id number] Report ID: [id number]
== END 2024-11-19 12:30 | disposition home or self-care (01) ==
LOC: CCL 07:30
PROVIDERS: ATTEND Internal Medicine Interventional Cardiology
DX: I25.10 Atherosclerotic heart disease of native coronary artery without angina pectoris (principal); I25.810 Atherosclerosis of coronary artery bypass graft(s) without angina pectoris; I25.82 Chronic total occlusion of coronary artery; I77.1 Stricture of artery; I13.0 Hypertensive heart and chronic kidney disease with heart failure and stage 1 through stage 4 chronic kidney disease, or unspecified chronic kidney disease; I50.32 Chronic diastolic (congestive) heart failure; N18.30 Chronic kidney disease, stage 3 unspecified; E78.5 Hyperlipidemia, unspecified; G47.30 Sleep apnea, unspecified; E66.01 Morbid (severe) obesity due to excess calories; F17.210 Nicotine dependence, cigarettes, uncomplicated; Z79.82 Long term (current) use of aspirin; Z88.0 Allergy status to penicillin; Z88.1 Allergy status to other antibiotic agents; Z91.048 Other nonmedicinal substance allergy status; Z82.49 Family history of ischemic heart disease and other diseases of the circulatory system; Z79.899 Other long term (current) drug therapy
CPT/HCPCS: 93005; 85025; 80048; 36415; 85610; 85730; 71046; 93455; 76937; C1893; Q9967; J1644 ×2; J2003; J2250; J3010; J7040; 99152; 99153; J0461